=== PATIENT | female | born 1970 | race Caucasian/White ===

== ENCOUNTER 2017-02-12 10:40 | Emergency (ER) | payer MEDICAID ==
[2017-02-12 10:55] VITALS: BMI 33.2
[2017-02-12 10:56] VITALS: BP 121/69; PULSE 71; TEMP 97.7; O2SAT 100
--- NOTE | 2017-02-12 11:30 | ED PDOC ---
HPI: Skin/Bite Injury Time Seen by Provider: 02/12/17 11:03 Chief Complaint (Nursing): Abnormal Skin Integrity Chief Complaint (Provider): rash History Per: Patient Additional Complaint(s): 46-year-old female with no past medical history presents to emergency department with itchy diffuse rash ongoing for about 2 months. Patient denies any fever or chills. No medications taken for relief of symptoms. Patient is currently non-domiciled. Past Medical History Reviewed: Historical Data, Nursing Documentation, Vital Signs Vital Signs: Last Vital Signs Temp 97.7 F 02/12/17 10:54 Pulse 71 02/12/17 10:54 Resp 17 02/12/17 10:54 BP 121/69 02/12/17 10:54 Pulse Ox 100 02/12/17 11:52 - Medical History PMH: No Chronic Diseases - Surgical History Other surgeries: fibroid removal - Family History Family History: States: No Known Family Hx - Living Arrangements Living Arrangements: With Family - Social History Current smoker - smoking cessation education provided: No Alcohol: None Drugs: Denies - Home Medications Home Medications: Ambulatory Orders Medication Instructions Recorded DiphenhydrAMINE [Benadryl] 25 mg PO ASDIR #1 packet 02/12/17 Methylprednisolone [Medrol Dose 4 mg PO ASDIR #21 mg 02/12/17 Pack (21 tabs)] - Allergies Allergies/Adverse Reactions: Allergies Allergy/AdvReac Type Severity Reaction Status Date / Time No Known Allergies Allergy Verified 02/12/17 11:06 Review of Systems ROS Statement: Except As Marked, All Systems Reviewed And Found Negative Constitutional: Negative for: Fever Skin: Positive for: Rash Physical Exam - Reviewed Nursing Documentation Reviewed: Yes - Physical Exam Appears: Positive for: Well, No Acute Distress Head Exam: Positive for: ATRAUMATIC Skin: Positive for: Rash (Diffuse maculopapular rash noted to torso and bilateral upper and lower extremities, no depression or lesions, no active drainage or bleeding, underlying dry skin is noted.) Cardiovascular/Chest: Positive for: Regular Rate, Rhythm Respiratory: Positive for: Normal Breath Sounds. Negative for: Wheezing, Respiratory Distress Extremity: Positive for: Normal ROM. Negative for: Pedal Edema Neurologic/Psych: Positive for: Alert, Oriented - ECG O2 Sat by Pulse Oximetry: 100 Pulse Ox Interpretation: Normal Medical Decision Making Medical Decision Making: Impression: Contact dermatitis Plan: PO benadryl Rx benadryl and medrol dose pack given. Patient was referred to clinic for follow up. Disposition - Clinical Impression Clinical Impression: Contact dermatitis - Patient ED Disposition Is Patient to be Admitted: No Counseled Patient/Family Regarding: Studies Performed, Diagnosis, Need For Followup, Rx Given - Disposition Referrals: [facility] [Outside] Disposition: Routine/Home Disposition Time: 11:47 Condition: STABLE Additional Instructions: Take rx meds as directed. Follow up with clinic. Prescriptions: DiphenhydrAMINE [Benadryl] 25 mg PO ASDIR #1 packet Methylprednisolone [Medrol Dose Pack (21 tabs)] 4 mg PO ASDIR #21 mg Instructions: Contact Dermatitis (ED)
[2017-02-12 12:44] VITALS: RESP 16
== END 2017-02-12 12:09 | disposition home or self-care (01) ==
LOC: H.ER 10:40
DX: L25.9 Unspecified contact dermatitis, unspecified cause (principal)